=== PATIENT | female | born 2000 | race Caucasian/White ===

== ENCOUNTER 2023-09-09 20:40 | Emergency (ER) | payer OTHER, SELFPAY ==
[2023-09-09 20:49] VITALS: BP 159/71; PULSE 90; RESP 17; TEMP 37; O2SAT 99; BMI 27.4
[2023-09-09 21:14] LABS: HCG Qualitative Urine. Negative (Negative)
[2023-09-09 21:24] LABS: Add Urine Microscopic? YES; Bilirubin Urine Neg (Negative); Blood Urine 3+ (Negative); Glucose Urine UA Norm (Normal); Ketones Urine Negative (Negative); Leukocyte Esterase Urine 2+ (Negative); Nitrate Urine Negative (Negative); Protein Urine Neg (Negative); Specific Gravity, Urine 1.005 (1.005-1.030); Squamous Epithelial Cell Urine 0-4 /hpf (0-5); Urine Appearance Hazy (CLEAR); Urine Color Colorless (Yellow); Urobilinogen Urine Norm (Negative); WBC Urine 15-25 /hpf (0-5); pH Urine 7 (5-7)
[2023-09-09 21:25] LABS: Add Urine Culture? Yes; Bacteria Urine TRACE /hpf
--- NOTE | 2023-09-09 22:22 | ED_ITS ---
HPI - Female Genitourinary 2 General: Chief complaint: Urogenital-Female Stated complaint: Possible UTI Time Seen by Provider: 09/09/23 21:08 History of Present Illness: Tara is a 23-year-old female that presents to the emergency department with complaints of low abdominal pain, dysuria, frequency and urgency. Today she started running low-grade temp and developed bilateral flank pain She reports she has been chilling and had nausea. Associated symptoms: Reports abdominal pain and nausea; Deny headache(s) or vaginal discharge Review of Systems 2 General: Reports: 10 or more systems reviewed and unremarkable except in HPI and below Const: Denies: fever(s), chills, change in appetite, change in weight, fatigue or malaise Card: Denies: chest pain, palpitations, irregular heart rhythm, edema, dyspnea on exertion, orthopnea or leg pain with exertion Resp: Denies: dyspnea, productive cough, non-productive cough, wheezing, stridor or chest congestion GI: Reports: abdominal pain, nausea and vomiting; Denies: dysphagia, diarrhea, constipation, bloating, GI cramping or hematochezia : Reports: flank pain, difficulty voiding, dysuria, urinary frequency, urinary urgency and oliguria; Denies: urinary hesitancy, hematuria, vaginal bleeding or vaginal discharge Musc: Denies: neck pain, back pain, extremity pain, joint pain, joint swelling, joint redness, joint warmth or muscle weakness Skin/Breast: Denies: rash, pruritus, erythema, photosensitivity or new lesions Neuro: Denies: headache(s), numbness in extremities, weakness in extremities, sensory changes, lack of coordination, difficulty walking, frequent falls, dizziness, confusion, Slurred speech present, difficulty communicating thoughts, seizure-like activity or involuntary movements Endo: Denies: polyuria, polydipsia or tired all the time Darron/Lymph: Denies: easy bruising or easy bleeding Physical Exam 2 Const: COMMON NORMALS: no acute distress, patient oriented x3 and alert G ENERAL APPEARANCE: cooperative ORIENTATION/CONSCIOUSNESS: Yes awake, Yes oriented to person, Yes oriented to place and Yes oriented to time HENMT: COMMON NORMALS: normocephalic and atraumatic HEAD & SCALP: n ormocephalic and atraumatic FACE & SINUS: normal facial exam MOUTH: Normal oral and palatal mucosa present THROAT: posterior oropharynx normal Eye: COMMON NORMALS: Equal, round and reactive pupils present, EOMs intact bilaterally, conjunctivae normal and no scleral icterus GENERAL EYE: a ppearance normal, both eyes and all related structures ALIGNMENT: Yes alignment normal PERIORBITAL: periorbital findings normal CONJUNCTIVA: Yes conjunctivae normal PUPIL: Yes Equal, round and reactive pupils present Neck/C-Spine: COMMON NORMALS: full ROM GENERAL: Yes normal visual inspection Lymph: LYMPHATIC: no lymphadenopathy noted Chest: COMMONS NORMALS: normal inspection of the chest Breast/axilla inspection: Yes no chest deformity, asymmetry, normal contours, no nodules, masses, tenderness Resp: COMMON NORMALS: normal respiratory effort, No retractions, No use of accessory muscles and clear to auscultation bilaterally EFFORT & INSPECTION: Yes able to speak in complete sentences and Yes symmetric chest movement A USCULTATION: clear to auscultation bilaterally Cardio: COMMON NORMALS: regular rate, regular rhythm and Peripheral pulses 2+ throughout RATE: regular rate RHYTHM: regular rhythm PERIPHERAL PULSES: Peripheral pulses 2+ throughout GI: COMMON NORMALS: Normal to inspection, nondistended, normoactive bowel sounds present, Soft to palpation, non-tender and No hepatosplenomegaly present INSPECTION: Yes normal to inspection AUSCULTATION: Yes normoactive bowel sounds PALPATION: Yes Soft to palpation and Yes No hepatosplenomegaly present RECTAL EXAM: deferred Extremity: COMMON NORMALS: normal to inspection GENERAL: Yes normal exam except as noted Neuro: COMMON NORMALS: patient oriented x3 SENSORIUM/ORIENTATION: Yes alert, Yes oriented to person, Yes oriented to place and Yes oriented to time CRANIAL NERVES: Yes CN normal except as noted Psych: COMMON NORMALS: mental status grossly normal, Normal thought process present, cooperative, activity/motor behavior normal, denies homicidal ideation and denies suicidal ideation THOUGHT PROCESS: Normal thought process present Skin: COMMON NORMALS: no rashes or lesions noted, no wounds and turgor normal GENERAL SKIN EXAM: no rashes or lesions noted and turgor normal Course 2 Vital Signs: Vital signs: Vital Signs Temperature 98.6 F 09/09/23 20:49 Pulse Rate 90 09/09/23 20:49 Respiratory Rate 17 09/09/23 20:49 Blood Pressure 159/71 09/09/23 20:49 Pulse Oximetry 99 09/09/23 20:49 Oxygen Delivery Me thod Room Air 09/09/23 20:49 MDM - Female Medical Decision Making Patient was evaluated in the emergency department today for dysuria. Differential diagnoses include UTI, pyelonephritis, viral illness, gastroenteritis Patient underwent a urine test which was negative and a urinalysis which showed bacteria, 15-25 white blood cells, 2+ leukoesterase. Furthermore she complained of bilateral flank pain that began today. She does have CVA tenderness along with nausea and vomiting and chills. Patient was can be given cephalexin initially but due to concern for pyelonephritis, we elected to give Bactrim. She is can be discharged home on Bactrim I did offer to start an IV and give her fluid however she has declined. She is going to be sent home with instructions on what to observe for, instructions to increase her fluids and Zofran to help with any nausea. All questions answered Lab Data 09/09/23 22:09/09/23: Laboratory Results WBC 11.57 10^3/uL (3.29-11.43) H 09/09/23: RBC 4.56 10^6/uL (3.85-5.65) 09/09/23: Hgb 13.90 g/dL (11.27-16.99) 09/09/23: Hct 41.3 % (36-47) 09/09/23: MCV 90.6 fl (85-98) 09/09/23: MCH 30.5 pg (27-33) 09/09/23: MCHC 33.7 g/dL (30-55) 09/09/23: RDW 11.0 % (12.1-15.1) L 09/09/23: Plt Count 225 10^3/cmm (157-399) 09/09/23: MPV 10.4 fL (7.4-10.4) 09/09/23 22: Neut % (Auto) 79.6 % 09/09/23: Lymph % (Auto) 13.9 % 09/09/23: [place] % (Auto) 5.6 % 09/09/23: Eos % (Auto) 0.3 % 09/09/23 22: Baso % (Auto) 0.3 % 09/09/23 22: Neut # (Auto) 9.20 10^3/uL (1.8-7.7) H 09/09/23 22: Lymph # (Auto) 1.6 10^3/uL (0.8-4.8) 09/09/23 22: [place] # (Auto) 0.7 10^3/uL (0.2-0.9) 09/09/23 22: Eos # (Auto) 0.0 10^3/uL (0.0-0.8) 09/09/23: Baso # (Auto) 0.0 10^3/uL (0.0-0.1) 09/09/23: Nucleated RBC % (auto) 0 % 09/09/23: Nucleated RBCs # 0.0 /100WBC 09/09/23 22: Sodium 137 mmol/L (136-145) 09/09/23 22: Potassium 3.9 mmol/L (3.5-5.1) 09/09/23 22: Chloride 101 mmol/L (98-107) 09/09/23 22: Carbon Dioxide 25 mmol/L (22-29) 09/09/23 22: Anion Gap 14.9 (5-19) 09/09/23 22: BUN 10 mg/dL (6-20) 09/09/23: Creatinine 0.6 mg/dL (0.5-0.9) 09/09/23: GFR Calculation 126.2 mL/min (90-130) 09/09/23 22: Glucose 102 mg/dL (65-115) 09/09/23 22: Calculated Osmolality 283 mOsm/kg (285-295) L 09/09/23: Calcium 9.8 mg/dL (8.5-10.5) 09/09/23 22: Total Bilirubin 0.4 mg/dL (0.15-1.2) 09/09/23 22: AST 19 U/L (0-32) 09/09/23 22: ALT 14 U/L (0-33) 09/09/23 22: Alkaline Phosphatase 53 U/L (35-105) 09/09/23 22: Total Protein 7.4 g/dL (6.6-8.7) 09/09/23 22: Albumin 4.7 g/dL (3.5-5.2) 09/09/23 22: Globulin 2.7 g/dL (1.3-4.6) 09/09/23 22: HCG, Qual Negative (Negative) 09/09/23 21:00 Urine Color Colorless (Yellow) 09/09/23 21:00 Urine Appearance Hazy (CLEAR) A 09/09/23 21:00 Urine pH 7 (5-7) 09/09/23 21:00 Ur Specific [place] 1.005 (1.005-1.030) 09/09/23 21:00 Urine Protein Neg (Negative) 09/09/23 21:00 Urine Glucose (UA) Norm (Normal) 09/09/23 21:00 Urine Ketones Negative (Negative) 09/09/23 21:00 Urine Blood 3+ (Negative) H 09/09/23 21:00 Urine Nitrate Negative (Negative) 09/09/23 21:00 Urine Bilirubin Neg (Negative) 09/09/23 21:00 Urine Urobilinogen Norm mg/dL (Negative) 09/09/23 21:00 Ur Leukocyte Esterase 2+ (Negative) H 09/09/23 21:00 Urine RBC 5-10 /hpf (0-2) H 09/09/23 21:00 Urine WBC 15-25 /hpf (0-5) H 09/09/23 21:00 Ur Squamous Epith Cells 0-4 /hpf (0-5) H 09/09/23 21:00 Amorphous Sediment Not Reportable 09/09/23 21:00 Urine Bacteria Trace /hpf (NONE) 09/09/23 21:00 No radiology studies performed this visit Discharge Plan Discharge Patient Disposition: Home Clinical Impression: Pyelonephritis Condition: Stable Prescriptions: New ondansetron 4 mg tablet,disintegrating 4 mg PO Q8H PRN (Reason: nausea and vomiting) 5 Days Qty: 20 0RF sulfamethoxazole-trimethoprim [Bactrim DS] 800-160 mg tablet 1 tab PO BID 10 Days Qty: 20 0RF Discharge Orders: Discharge ED (Routine); Ordered 09/09/23 Ordered By: Rozlyn Ольга McTeer Discharge Diet: Advance as tolerated Discharge Activity: Resume usual activity Patient Instructions: Pain Management, Kidney Infection (ED), Urinary Tract Infection in Women (DC) Activity Restrictions/Additional Instructions: Please return to the emergency department for new concerning or worsening symptoms Coding Level of Care Code ED Spool Cleaner Hand for Lin Barry
[2023-09-09] MEDS: sulfamethoxazole-trimeth DS 160-800 mg Tablet 1 TAB PO (22:31)
[2023-09-09 22:34] LABS: Basophils % 0.3 %; Eosinophils % 0.3 %; Hematocrit 41.3 % (36-47); Lymphocytes # 1.6 10^3/uL (0.8-4.8); Lymphocytes % 13.9 %; Mean Corpuscular HGB Conc 33.7 g/dL (30-55); Mean Corpuscular Hemoglobin 30.5 pg (27-33); Mean Corpuscular Volume 90.6 fl (85-98); Mean Platelet Volume 10.4 fL (7.4-10.4); Monocytes # 0.7 10^3/uL (0.2-0.9); Monocytes % 5.6 %; Neutrophils % 79.6 %; Nucleated Red Blood Cells % 0 %; Platelet Count 225 10^3/cmm (157-399); Red Blood Count 4.56 10^6/uL (3.85-5.65); White Blood Count 11.57 10^3/uL (3.29-11.43)
[2023-09-09 22:51] LABS: Alanine Aminotransferase 14 U/L (0-33); Albumin Level 4.7 g/dL (3.5-5.2); Alkaline Phosphatase 53 U/L (35-105); Anion Gap 14.9 (5-19); Aspartate Amino Transferase 19 U/L (0-32); Blood Urea Nitrogen 10 mg/dL (6-20); Calcium 9.8 mg/dL (8.5-10.5); Carbon Dioxide 25 mmol/L (22-29); Chloride 101 mmol/L (98-107); Globulin 2.7 g/dL (1.3-4.6); Glomerular Filtration Rate 126.2 mL/min (90-130); Glucose 102 mg/dL (65-115); Osmolality Calculated 283 mOsm/kg (285-295); Potassium 3.9 mmol/L (3.5-5.1); Sodium 137 mmol/L (136-145); Total Bilirubin 0.4 mg/dL (0.15-1.2); Total Protein 7.4 g/dL (6.6-8.7)
== END 2023-09-10 00:01 | disposition home or self-care (01) ==
PROVIDERS: Emergency Medicine; Emergency Provider Nurse Practitioner
DX: N12 Tubulo-interstitial nephritis, not specified as acute or chronic (principal)
CPT/HCPCS: 36415; 80053; 81001; 81025; 85025; 87086; 99283